=== PATIENT | female | born 1985 | race Caucasian/White ===

== ENCOUNTER 2024-08-29 16:14 | Emergency (ER) | payer SELFPAY ==
[2024-08-29 16:20] VITALS: BP 122/90
[2024-08-29 16:54] LABS: HCG, Serum Qualitative Screen Negative
[2024-08-29 16:55] LABS: % Basophils 0.9 % (0-2); % Eosinophils 4.3 % (0-6); % Immature Granulocytes 0.9 % (0-0.5); % Lymphocytes 33.5 % (20.5-51.1); % Monocytes 5.5 % (1.7-9.3); % Neutrophils 54.9 % (42.2-75.2); Absolute Basophils 0.1 10^3/uL (0-0.2); Absolute Eosinophils 0.5 10^3/uL (0-0.7); Absolute Immature Granulocytes 0.1 10^3/uL (0-0.05); Absolute Lymphocytes 3.8 10^3/uL (1.2-3.4); Absolute Monocytes 0.6 10^3/uL (0.1-0.6); Absolute Neutrophils 6.2 10^3/uL (1.4-6.5); Hematocrit 35.4 % (37.0-47.0); Hemoglobin 11.3 g/dL (12.0-16.0); Mean Corp Hgb Conc. 31.9 g/dL (33.0-37.0); Mean Corpuscular Hgb 26.4 pg (27.0-31.0); Mean Corpuscular Volume 82.7 fL (81.0-99.0); Mean Platelet Volume 10.3 fL (7.4-10.4); Nucleated Red Blood Cells % 0 %; Platelet Count 900 10^3/uL (130-400); Red Blood Cell Count 4.28 10^6/uL (4.20-5.40); Red Cell Dist. Width 14.6 % (11.5-14.5); White Blood Cell Count 11.3 10^3/uL (4.8-10.8)
[2024-08-29 16:58] LABS: ALT (SGPT) 18 U/L (0-35); AST (SGOT) 26 U/L (14-36); Albumin 4.5 g/dl (3.5-5.0); Alkaline Phosphatase 56 U/L (38-126); Blood Urea Nitrogen 15 mg/dl (7-17); Calcium 9.6 mg/dl (8.4-10.2); Carbon Dioxide 26 mmol/L (22-30); Chloride 104 mmol/L (98-107); Glucose 104 mg/dl (70-99); Lipase 82 U/L (23-300); Potassium 4.5 mmol/L (3.5-5.1); Sodium 138 mmol/L (135-145); Total Bilirubin 0.2 mg/dl (0.2-1.3); Total Protein 6.7 g/dl (6.3-8.2); eGFR > 60.00
--- NOTE | 2024-08-29 18:21 | ED.GENMED ---
History of Present Illness
General
Chief Complaint: Abdominal Pain
Source: patient
Exam Limitations: none
Time Seen by Provider: 08/29/24 18:02
History of Present Illness
History of Present Illness:
This is a 39 year old female that comes in with c/o right sided abd pain for the past 2 months. States that this is close to her hip bone. State that it has gotten worse and goes around to the flank. States that she has also had a vaginal odor for
the past month. States that she thought it was BV and has been treating this with Boric acid. States that it will go away and then come back. Patient has is sexually active with the same partner. States that she as naueated last week. Denies any
fever, chills, chest pain, SOB, vomiting, diarrhea, headache, dizziness, urinary burning.
Past History
Past History
ED Past Medical History: Psychiatric (Depression) and Other (Thrombocytosis, Iron def anemia, )
ED Past Surgical History: None and Other (Bone Marrow biopsy, )
Patient has exhibited threatening behavior?: No
Social History
Tobacco: Smoker
Alcohol: None
Personal: Single
Living: other (boyfriend)
Employment: Employed
Family History
Family History: Other (Noncontributory)
Review of Systems
Review of Systems
All Other Systems: ROS reviewed and negative except as documented in HPI and ROS
Constitutional: Reports no symptoms; Denies fever or chills
EENT: Reports no symptoms
Respiratory: Reports no symptoms; Denies cough or trouble breathing
Cardiac: Reports no symptoms; Denies chest pain
ABD/GI: Reports abdominal pain (Right sided) and nausea; Denies vomiting or diarrhea
: Reports other (vaginal odor for a month); Denies dysuria, frequency or urgency
Musculoskeletal: Reports no symptoms
Skin: Reports no symptoms
Neurological: Reports no symptoms; Denies dizzy or headache
Psychiatric: Reports no symptoms
Phy Exam
General Physical Exam
General Presentation: well appearing and no apparent distress
General age: appears stated age
General Skin: warm and dry
General Habitus: normal
General Mental: alert
General Hydration: appears well hydrated
ENT Exam
ENT Exam: TM's normal, pharynx normal and neck supple
Eye Exam
Eye Exam: EOMI
Cardiovascular Exam
Cardiovascular Exam: regular rate/rhythm, no edema, no murmur and normal peripheral pulses
Pulmonary Exam
Pulmonary Exam: lungs clear, no respiratory distress, no rales, chest non tender, no crackles, no rhonchi, no wheezing and no cough
Gastrointestinal Exam
Gastrointestinal Exam: normal bowel sounds, soft, no organomegaly, no pulsatile mass, non distended and tender (Right sided abd tenderness with palpation)
Musculoskeletal Exam
Musculoskeletal Exam: full ROM and no edema
Skin Exam
Skin Exam: normal color, warm/dry, no rash and no petechia
Course
Orders/Labs/Results
Orders:
Orders
08/29/24 16:24
Test Result ONCE
08/29/24 16:29
Complete Blood Count/With Diff Urgent
Comprehensive Metabolic Panel Urgent
HCG, Serum Qualitative Screen Urgent
Comment: Notify provider if positive test present
Lipase Urgent
08/29/24 18:20
CT Abd/pelvis W Iv Cont Urgent
Comment:
Reason For Exam: right sided abd pain
0.9% Sodium Chloride 1000 ml [Nss] 1,000 ml IV BOLUS
US Pelvis Only (non-obstetric) Urgent
Comment:
Reason For Exam: right lower abd pain
08/29/24 18:57
Urinalysis Reflex To Culture Urgent
Date Specimen was Collected: 08/29/24
Time Specimen was Collected: 18:19
Urine Microscopic Reflex Cult Urgent
Chlamydia/GC by PCR Urgent
SHRUTHI Source: Urine
Specimen Description:
Source:: URINE
Date Specimen was Collected: 08/29/24
Time Specimen was Collected: 18:19
Abnormal Lab Results
08/29/24 08/29/24
16:29 18:57
WBC 11.3 H 10^3/uL
(4.8-10.8)
Hgb 11.3 L g/dL
(12.0-16.0)
Hct 35.4 L %
(37.0-47.0)
MCH 26.4 L pg
(27.0-31.0)
MCHC 31.9 L g/dL
(33.0-37.0)
RDW 14.6 H %
(11.5-14.5)
Plt Count 900 H 10^3/uL
(130-400)
Abs Immat Gran (auto) 0.1 H 10^3/uL
(0-0.05)
Absolute Lymphs (auto) 3.8 H 10^3/uL
(1.2-3.4)
Immature Gran % 0.9 H %
(0-0.5)
Glucose 104 H mg/dl
(70-99)
Leukocyte Esterase Rfl Trace A
(Negative)
08/29/24 16:29
08/29/24 16:29
Leukocytosis, H/H slighlty low. Thrombocytopenia, Glucose nonfasting. HCG negative.
Vital Signs
Initial and Last Documented VS:
Initial Vital Signs
Temp Pulse Resp BP Pulse Ox
99 F 89 16 122/90 98
08/29/24 16:20 08/29/24 16:20 08/29/24 16:20 08/29/24 16:20 08/29/24 16:20
Last Documented Vital Signs
Temp Pulse Resp BP Pulse Ox
98.6 F 72 16 103/69 100
08/29/24 21:53 08/29/24 21:53 08/29/24 21:53 08/29/24 21:53 08/29/24 21:53
MDM/Problems Addressed
Differential Diagnosis Includes:
Ovarian cyst. Appendicitis, Renal calculus,
MDM/Problems Addressed:
This is a 39 year old female that comes in with right sided abd pain. States that this started 2 months ago and now it is moving to the flank. States that she also has a vaginal smell but no discharge that has been going on for a month.
will check labs, US and get CT scan. Will give IV fluids and check urine.
back into see patient. Reviewed CT and US and labs. Urine is negative for infection. Explained that a GC and Chlamydia was done on the urine but this will not be back tonight. If this would come back positive, patient will be called and started on
antibiotics. States that she has no discharge. Offered a Pelvic exam but will give patient the name of an [facility] for follow up. Patient to return with any concerns.
Chronic conditions affecting care:
NA
Acute Exacerbation and/or Progression of Chronic Illness:
NA
*Radiology
Radiology exam reviewed: radiology read reviewed (CT-No significant acute abnormality identified in the abdomen or pelvis, as described above. Normal appendix. Borderline splenomegaly. US unremarkable transabdominal only pelvic ultrasound. )
*Pulse Oximetry
Patient hypoxic: no
*EKG
Interpreted by ED Provider?: NA
Rate: EKG- N/A
*Development Engineer Interpretation
Rate: Development Engineer- N/A
*Critical Care Note
Total Time (30-74mins, 75-104mins- exclusive of procedures): Not Applicable
ED Attending Note
-
Portions of this chart may have been created with voice recognition software.� Occasional wrong word or��sound alike� substitutions may have occurred due to the inherent limitations of voice recognition software.
Discharge Plan
Departure
Patient Disposition: Home (Routine Discharge)
Date of Disposition: 08/29/24
Time of Disposition: 22:17
Patient with high blood pressure during this ER visit?: No
Condition: Good
Covid-19: Not Applicable
Discharge Problem:
Abdominal pain
Instructions: Abdominal Pain
Prescriptions:
No Action
aspirin 81 MG tablet,delayed release (DR/EC)
81 mg PO DAILY
escitalopram oxalate 20 MG tablet
20 mg PO DAILY
Referrals:
Celina Montalvo MD [Family Provider] -
Angie Araiza, [Active] - Call in 1-3 days for appt
Activity Restrictions/Additional Instructions:
As discussed, your blood work shows your Platlets are elevated. Your Urine is negative for infection. Your Ultrasound and CT scan are both normal. This may be due to degenerative changes of the spine that can cause abd pain. You have had a GC an
Chlamydia done on your urine. This will not come back tonight but if this would come back abnormal you will be called. Please follow up with the [facility] for further evaluation. IF YOU HAVE ANY OTHER CONCERNS PLEASE RETURN TO THE EMERGENCY ROOM.
Interventions
Interventions:
*Risk Screen - Suicide Last Done: 08/29/24 16:20
*General Assessment Last Done: 08/29/24 16:20
*Neglect/Abuse Screening Last Done: 08/29/24 16:20
*ED COVID-19 Vaccine History Last Done: 08/29/24 19:49
SH-[id number]-[id number] Assessment Last Done: 08/29/24 19:48
Discharge Date and Time
Print Language: [place] ISLAND[place]
[2024-08-29] MEDS: NSS 1000 IV (19:03)
[2024-08-29 19:08] LABS: Urine Albumin Negative (Neg - Trace); Urine Bilirubin Negative (Negative); Urine Character Clear (Clear); Urine Color Yellow; Urine Glucose Negative (Negative); Urine Ketone Negative (Negative); Urine Leukocyte Trace (Negative); Urine Nitrite Negative (Negative); Urine Occult Blood Negative (Negative); Urine Specific Gravity 1.015 (<1.030); Urine Urobilinogen Negative (Neg - 1+); Urine pH 6.5 (5.0-9.0)
[2024-08-29 19:19] LABS: Urine Red Blood Cell 0-2 /HPF (0-2)
[2024-08-29 21:53] VITALS: BP 103/69
== END 2024-08-29 22:35 | disposition home or self-care (01) ==
LOC: EMR 16:14
PROVIDERS: Clinical Nurse Specialist Family Health; Emergency Medicine; EMERGENCY PHYSICIAN Emergency Medicine; FAMILY PHYSICIAN Family Medicine
DX: R10.9 Unspecified abdominal pain (principal); D75.839 Thrombocytosis, unspecified; D50.9 Iron deficiency anemia, unspecified; F32.A Depression, unspecified
CPT/HCPCS: 99284; 96360; 74177; 76856; 80053; 81003; 81015; 83690; 84703; 85025; 87491; 87591; Q9967